=== PATIENT | female | born 1965 ===

== ENCOUNTER 2021-10-26 10:44 | Outpatient (CLI) | payer OTHER ==
[~2021-10-26 10:44] MED LIST: Iopamidol 370 76% 100 ML VIAL ONE
[2021-10-26 11:19] LABS: #Basophils 0.1 thou/uL (0.0-0.2); #Eosinphils 0.3 thou/uL (0.0-0.7); #Monocytes 0.4 thou/uL (0.11-0.59); #Neutrophils 3.1 thou/uL (1.40-6.50); %Basophils 1.2 % (0.0-1.0); %Eosinophils 4.3 % (0.0-10.0); %Lymphocytes 33.7 % (21.0-51.0); %Monocytes 7.4 % (0.0-10.0); %Neutrophils 53.5 % (42.0-75.0); Hemoglobin 14.1 g/dL (12.0-16.0); Mean Corpuscular HGB CONC 32.2 g/dL (32.0-36.0); Mean Corpuscular Hemoglobin 30.3 pg (27.0-31.0); Mean Corpuscular Volume 94.2 fL (78.0-98.0); Mean Platelet Volume 8.7 fL (7.4-10.4); Platelet Count 213 thou/uL (130-400); RBC Distribution Width 12.1 % (11.5-14.5); Red Blood Cell (RBC) Count 4.64 mill/uL (4.20-5.40); White Blood Cell (WBC) Count 5.9 thou/uL (4.8-10.8)
[2021-10-26 11:23] LABS: Hemoglobin A1c 5.3 % (4.0-6.0)
[2021-10-26 11:39] LABS: ALT (SGPT) 14 U/L (8-55); AST (SGOT) 12 U/L (5-34); Albumin 4.5 g/dL (3.5-5.0); Alkaline Phosphatase 68 U/L (40-110); Anion Gap 13 mmol/L (10-20); BUN (Urea Nitrogen) 13 mg/dL (9.8-20.1); Bilirubin, Total 0.3 mg/dL (0.2-1.2); Calc. Creatinine Clearance 0 mL/min (70-130); Carbon Dioxide 27 mmol/L (22-29); Cardiac Risk 2.9 (Less than 4.5); Chloride 105 mmol/L (98-107); Cholesterol 222 mg/dl (< 200 Desired); Globulin 2.6 g/dL (2.4-3.5); Glucose 82 mg/dL (70-105); HDL Cholesterol 76 mg/dL (>60 Neg Risk); LDL Cholesterol, Calculated 115 mg/dL; Potassium 4.1 mmol/L (3.5-5.1); Protein, Total 7.1 g/dL (6.0-8.3); Sodium 141 mmol/L (136-145); Triglycerides 154 mg/dL (Less than 150)
== END 2021-10-26 10:45 | disposition home or self-care (01) ==
LOC: MRI 10:44
PROVIDERS: ATTEND Psychiatry & Neurology Neurology
DX: G45.9 Transient cerebral ischemic attack, unspecified (principal); I34.0 Nonrheumatic mitral (valve) insufficiency; R90.82 White matter disease, unspecified
CPT/HCPCS: 36415; 70496; 70498; 70551; 80053; 80061; 83036; 85025; 93306; Q9967